=== PATIENT | male | born 1990 | race Caucasian/White ===

== ENCOUNTER 2016-06-16 03:31 | Emergency (ER) | payer BC ==
--- NOTE | 2016-06-16 07:06 | ER ---
ADMIT: 06/16/2016 RM/LOC: ER [facility] MR#: [id number] [address] [address] HARRIET BAXTER [address] [place] [address] Emergency Room Report SEX: M AGE: 26 : 1990 DATE: 06/16/2016 The patient is a 26-year-old male complaining of acute onset of throbbing left frontal headache associated with photophobia, nausea after alcohol and Ruiz's tonight. Took 5 g of Tylenol and Motrin prior to arrival with complete relief. The patient admits to escalating headaches lately. No prior head trauma. CT head negative. Exam remarkable for no focal deficits. Recommend limiting Tylenol to no more than 3 g a day and limiting alcohol, and follow up Dr. Rodriguez as needed. Compa Lee MD/ ludmila JOB #: [id number] CC: Compa Lee MD, Attending Physician Mark Wolfe MD, Family Physician Saeed Rodriguez MD
== END 2016-06-16 05:00 | disposition home or self-care (01) ==
LOC: ER 03:31
DX: G43.909 Migraine, unspecified, not intractable, without status migrainosus (principal); Z88.0 Allergy status to penicillin

== ENCOUNTER 2016-06-24 02:48 | Emergency (ER) | payer BC ==
--- NOTE | 2016-06-24 06:16 | ER ---
ADMIT: 06/24/2016 RM/LOC: ER [facility] MR#: [id number] [address] HARRIET BAXTER [address] [place] [address] Emergency Room Report SEX: M AGE: 26 : 1990 DATE: 06/24/2016 The patient is a 26-year-old male, in police custody for DUI. The patient is cooperative, stable vital signs. Released in police custody. Compa Lee MD/ ludmila JOB #: [id number] CC: Compa Lee MD, Attending Physician Mark Wolfe MD, Family Physician Jose Lockett PA-C
== END 2016-06-24 02:55 ==
LOC: ER 02:48
DX: F10.129 Alcohol abuse with intoxication, unspecified (principal); Z88.0 Allergy status to penicillin